=== PATIENT | male | born 1995 | race African-American/Black ===

== ENCOUNTER 2016-08-13 19:40 | Emergency (ER) | payer SELFPAY ==
[~2016-08-13] VITALS: Ht 182.9 cm; Wt 93.0 kg
[~2016-08-13 19:40] MED LIST: NOCURR
[2016-08-13 22:19] VITALS: BP 123/77
== END 2016-08-13 22:34 | disposition home or self-care (01) ==
LOC: EMS 19:51
DX: S13.4XXA Sprain of ligaments of cervical spine, initial encounter (principal); V49.9XXA Car occupant (driver) (passenger) injured in unspecified traffic accident, initial encounter; Y93.89 Activity, other specified; Y92.89 Other specified places as the place of occurrence of the external cause; Y99.8 Other external cause status
CPT/HCPCS: 99281; 99283